=== PATIENT | female | born 1990 | race Asian ===

== ENCOUNTER 2019-07-05 14:38 | Emergency (ER) | payer OTHER ==
[~2019-07-05] VITALS: Ht 170.2 cm; Wt 82.6 kg
[2019-07-05 15:27] LABS: URINE BILIRUBIN NEGATIVE (Negative); URINE BLOOD NEGATIVE (Negative); URINE CLARITY CLEAR; URINE COLOR YELLOW; URINE GLUCOSE-RANDOM* NEGATIVE (Negative); URINE KETONES NEGATIVE (Negative); URINE LEUKOCYTES-REFLEX NEGATIVE (Negative); URINE NITRITE-REFLEX NEGATIVE (Negative); URINE PROTEIN (DIPSTICK) TRACE (Negative); URINE SPECIFIC GRAVITY >= 1.030 (1.005-1.035)
[2019-07-05 15:38] LABS: ABSOLUTE NEUTROPHILS 8.6 thou/uL (1.4-8.2); BASOPHILS 0.4 % (0.0-2.0); EOSINOPHILS 0.7 % (0.0-3.0); HEMATOCRIT 37.7 % (37.0-47.0); HEMOGLOBIN 12.4 gm/dL (12.0-15.0); LYMPHOCYTES 11.6 % (24.0-44.0); MCHC 32.9 g/dL (28.0-37.0); MCV 85.3 fL (80.0-100.0); MONOCYTES 5.6 % (1.0-8.0); PLATELET COUNT 258 thou/uL (150-400); POLYS 81.7 % (36.0-66.0); RBC 4.42 mil/uL (4.20-5.00); RDW 12.5 % (10.5-14.5); WBC 10.5 thou/uL (4.0-11.0)
[2019-07-05 16:06] LABS: CREATININE 0.8 mg/dL (0.6-1.0); POTASSIUM 3.7 mmol/L (3.5-5.1)
[2019-07-05 16:12] LABS: ALBUMIN 3.7 g/dL (3.4-5.0); TOTAL BILIRUBIN 0.4 mg/dL (<0.1-1.0)
--- NOTE | 2019-07-05 17:11 | EKG ---
[place] [address] [facility] [place] [address] ELECTROCARDIOGRAM REPORT Name: YRN,JOSE Room #: REG Emil#: [id number] ������������������ Admission: 07/05/19 ������������������ Attend Phys: Discharge: ������������������ Date of : 88 Report #: [id number] ����������������������������������������������������������������� [id number] THIS REPORT FOR: //name// [facility] ED Test Date: 2019-07-05 Test Time: 17:05:02 Pat Name: JOSE POOL Department: Room: Gender: F [employer] Associate: [place] : 1990 Requested By: Radha Bright Order Number: [id number] MD: Adarsh Pierce Measurements Intervals [place] Rate: 61 P: 30 WV: 123 QRS: 69 QRSD: 92 T: 36 QT: 438 QTc: 442 Interpretive Statements Sinus rhythm Normal tracing No previous ECG available for comparison Electronically Signed On 07-05-2019 17:11:29 CDT by Adarsh Pierce [email or web address] ��������������������������������������������� <ELECTRONICALLY SIGNED> ���������������������������������������� By: Adarsh Pierce MD, [facility] ��������������������������������������������� 07/05/19 1711 1705 1705 Adarsh Pierce MD, FACC /EPI
[2019-07-05 17:17] VITALS: BP 103/64
[2019-07-05] MEDS ORDERED: BENTYL 20 MG TA20 M1 PO (17:43)
[2019-07-05] MEDS ORDERED: ONDANSETRON HCL4 M2 PO (17:43)
== END 2019-07-05 17:52 | disposition home or self-care (01) ==
LOC: ER 14:38
PROVIDERS: Nurse Practitioner Family
DX: K59.00 Constipation, unspecified (principal); R55 Syncope and collapse; R10.30 Lower abdominal pain, unspecified; E11.9 Type 2 diabetes mellitus without complications

== ENCOUNTER 2020-08-15 00:42 | Emergency (ER) | payer OTHER ==
[~2020-08-15] VITALS: Ht 170.2 cm; Wt 83.9 kg
[~2020-08-15 00:42] MED LIST: BENTYL 20 MG TA20 M1 PO; ONDANSETRON HCL4 M2 PO
[2020-08-15 01:31] LABS: ABSOLUTE NEUTROPHILS 6.7 thou/uL (1.4-8.2); BASOPHILS 0.5 % (0.0-2.0); EOSINOPHILS 2.4 % (0.0-3.0); HEMATOCRIT 41.6 % (37.0-47.0); HEMOGLOBIN 13.8 gm/dL (12.0-15.0); LYMPHOCYTES 21.1 % (24.0-44.0); MCH 29.8 pg (26.0-34.0); MCHC 33.1 g/dL (28.0-37.0); MONOCYTES 6.1 % (1.0-8.0); PLATELET COUNT 270 thou/uL (150-400); POLYS 69.9 % (36.0-66.0); RBC 4.63 mil/uL (4.20-5.00); RDW 13.6 % (10.5-14.5); WBC 9.6 thou/uL (4.0-11.0)
[2020-08-15 01:42] LABS: APTT 31.6 Seconds (24.5-32.8); INR 1.1; PROTIME 11.2 Seconds (9.3-11.4)
[2020-08-15 01:44] LABS: CALCIUM 8.7 mg/dL (8.5-10.1); POTASSIUM 3.7 mmol/L (3.5-5.1)
[2020-08-15 01:48] LABS: ALBUMIN 4.1 g/dL (3.4-5.0); TOTAL BILIRUBIN 0.2 mg/dL (0.2-1.0); TOTAL PROTEIN 7.9 g/dL (6.4-8.2)
[2020-08-15 02:10] VITALS: BP 115/65
[2020-08-15 02:14] LABS: URINE BILIRUBIN NEGATIVE (Negative); URINE BLOOD 3+ (Negative); URINE CLARITY SL CLOUDY; URINE COLOR YELLOW; URINE GLUCOSE-RANDOM* 3+ (Negative); URINE KETONES NEGATIVE (Negative); URINE NITRITE-REFLEX NEGATIVE (Negative); URINE PROTEIN (DIPSTICK) NEGATIVE (Negative)
[2020-08-15 02:25] LABS: URINE LEUKOCYTES-REFLEX 1+ (Negative)
[2020-08-15 02:26] LABS: BACTERIA-REFLEX 1-9 Few /HPF (None Seen); CASTS None Seen /LPF (None Seen); MUCUS 0-3 Light strn/LPF (None Seen); SQUAMOUS 0-3 Few /LPF (0-3); URINE RBC >20 Many /HPF (0-2); URINE WBC-REFLEX 0-5 Rare /HPF (0-5)
[2020-08-15 02:27] LABS: CRYSTALS None Seen /LPF (None Seen)
== END 2020-08-15 02:05 | disposition home or self-care (01) ==
LOC: ER 00:42
PROVIDERS: Emergency Medicine
DX: N93.8 Other specified abnormal uterine and vaginal bleeding (principal); E11.9 Type 2 diabetes mellitus without complications; K92.1 Melena; K59.00 Constipation, unspecified; R42 Dizziness and giddiness; Z97.5 Presence of (intrauterine) contraceptive device; Z98.890 Other specified postprocedural states